=== PATIENT | female | born 1995 | race Caucasian/White ===

== ENCOUNTER 2017-05-17 16:24 | Emergency (ER) | payer BC ==
[~2017-05-17] VITALS: Ht 152.4 cm; Wt 49.9 kg
[2017-05-17 16:32] VITALS: BP 135/108
== END 2017-05-17 17:22 | disposition home or self-care (01) ==
LOC: ER 16:32
DX: M79.89 Other specified soft tissue disorders (principal)
CPT/HCPCS: 73620; 99284; A4606; Z7610